=== PATIENT | female | born 1950 | race Caucasian/White ===

== ENCOUNTER 2023-04-02 21:37 | Inpatient (IN) ==
[2023-04-02] MEDS ORDERED: cefTRIAXone 1 gm/50 mL D5W 1 GM/50 ML BAG IV ONE (21:51)
[2023-04-02] MEDS ORDERED: Lactated Ringers 1000 ml BAG 1,000 ML IV ONE (21:51)
[2023-04-03] MEDS ORDERED: cefTRIAXone 1 gm/50 mL D5W 1 GM/50 ML BAG IV ONE (11:25)
[2023-04-03 13:08] LABS: Albumin 3.5 g/dL (3.2-5.2); Albumin/Globulin Ratio 1.1 (1-3); Calcium 9.2 mg/dL (8.6-10.3); Creatinine, Serum 0.61 mg/dL (0.51-0.95); Globulin 3.3 g/dL (2-4); Potassium 3.3 mmol/L (3.5-5.0); Total Bilirubin 0.7 mg/dL (0.2-1.0); Total Protein 6.8 g/dL (6.4-8.9); eGFR CKD-EPI 94.3 (>60)
[2023-04-03] MEDS ORDERED: cefTRIAXone 1 gm/50 mL D5W 1 GM/50 ML BAG IV SCH (13:58)
[2023-04-03] MEDS ORDERED: cefTRIAXone 1 GM ONETIME (ADVAN) IVPB ONE (14:15)
[2023-04-03] MEDS: Enoxaparin 40 MG/0.4 ML SYR SUBCUT SCH (14:48)
[2023-04-03] MEDS ORDERED: cefTRIAXone 1 GM Q24H (ADVAN) IVPB SCH (15:00)
[2023-04-03] MEDS ORDERED: Dextrose 50% Syringe 50 ml 25 GM/50 ML SYRINGE IV PUSH PRN (18:40)
[2023-04-03] MEDS ORDERED: PTO: Dulaglutide (NF) 0.75 MG/0.5 ML SYRINGE SUBCUT SCH (21:00)
[2023-04-04 05:48] LABS: Hematocrit 36.5 % (35-45); Hemoglobin 12.3 g/dL (11.5-14.3); Mean Corpuscular Hemoglobin 30.6 pg (27-33); Mean Corpuscular Hgb Conc 33.7 g/dL (31-36); Mean Corpuscular Volume 90.7 fL (80-97); Mean Platelet Volume 9.7 fL (7.5-11.2); Platelet Count 190 10^3/uL (150-450); Red Blood Count 4.03 10^6/uL (3.63-4.92); Red Cell Distribution Width 13.7 % (12-17); White Blood Count 11.3 10^3/uL (3.8-11.8)
[2023-04-04 06:15] LABS: Calcium 8.5 mg/dL (8.6-10.3); Creatinine, Serum 0.61 mg/dL (0.51-0.95); Potassium 3.2 mmol/L (3.5-5.0); eGFR CKD-EPI 94.3 (>60)
[2023-04-04] MEDS ORDERED: Potassium Chlor 20 meq TAB.ER PO ONE ×2 (07:51→21:00)
[2023-04-04] MEDS ORDERED: cefTRIAXone 1 gm/50 mL D5W 1 GM/50 ML BAG IV SCH (09:00)
[2023-04-04] MEDS: Aspirin EC 81 mg TAB.EC (enteric coated) PO SCH (09:19)
[2023-04-04] MEDS: cefTRIAXone 2 gm/50 mL D5W 2 GM/50 ML BAG IV SCH (10:47)
[2023-04-04] MEDS ORDERED: Insulin GLARGINE 100 un/ml 10 ml VIAL SUBCUT ONE (12:20)
[2023-04-04] MEDS: Enoxaparin 40 MG/0.4 ML SYR SUBCUT SCH (13:08)
[2023-04-05 06:10] LABS: ABS Eosinophils 0.1 10^3/uL (0.0-0.5); ABS Lymphocytes 1.4 10^3/uL (1.0-4.8); ABS Monocytes 0.9 10^3/uL (0.0-0.9); ABS Neutrophils 5.6 10^3/uL (1.5-7.6); Eosinophil % 0.7 %; Hematocrit 35.5 % (35-45); Lymphocyte % 17.6 %; Mean Corpuscular Hemoglobin 30.6 pg (27-33); Mean Corpuscular Hgb Conc 33.7 g/dL (31-36); Mean Corpuscular Volume 90.8 fL (80-97); Mean Platelet Volume 9.4 fL (7.5-11.2); Platelet Count 190 10^3/uL (150-450); Red Blood Count 3.91 10^6/uL (3.63-4.92); Red Cell Distribution Width 13.9 % (12-17); White Blood Count 7.9 10^3/uL (3.8-11.8)
[2023-04-05 06:31] LABS: Calcium 8.5 mg/dL (8.6-10.3); Creatinine, Serum 0.61 mg/dL (0.51-0.95); Potassium 3.7 mmol/L (3.5-5.0); eGFR CKD-EPI 94.3 (>60)
[2023-04-05] MEDS: Insulin GLARGINE 100 un/ml 10 ml VIAL SUBCUT SCH ×2 (09:51→09:54)
[2023-04-05] MEDS: Aspirin EC 81 mg TAB.EC (enteric coated) PO SCH ×2 (09:51→09:54)
[2023-04-05] MEDS: cefTRIAXone 2 gm/50 mL D5W 2 GM/50 ML BAG IV SCH ×2 (09:52→09:55)
[2023-04-05 10:24] VITALS: BP 120/75
[2023-04-05] MEDS: Enoxaparin 40 MG/0.4 ML SYR SUBCUT SCH (11:56)
== END 2023-04-05 13:55 | disposition home or self-care (01) | DRG 872 ==
LOC: ED 21:37 → EDHOLD 04-03 11:59 → SUATTDRO 04-03 11:59 → MED 04-03 15:45
PROVIDERS: ADMIT Internal Medicine; ATTEND Internal Medicine